=== PATIENT | female | born 1965 | race Caucasian/White ===

== ENCOUNTER 2018-04-23 14:01 | Day surgery (SDC) | payer OTHER ==
[~2018-04-23 14:01] MED LIST: MIDAZOLAM 2 MG/2 ML SOL ONE
[2018-04-23] MEDS: CYCLOPENTOLATE 1% SOL ONE ×3 (14:14→14:23)
[2018-04-23] MEDS: TROPICAMIDE 1% OPHTH SOL ONE ×3 (14:14→14:24)
[2018-04-23] MEDS: PHENYLEPHRINE HCL 10% OPHTHAL SOL ONE ×3 (14:14→14:23)
[2018-04-23] MEDS ORDERED: MOXIFLOXACIN-HOME SOL OP ONE ×2 (14:15→14:20)
[2018-04-23] MEDS ORDERED: KETOROLAC/HOME 0.5% SOL OP ONE ×3 (14:15→14:24)
[2018-04-23] MEDS: PROPARACAINE HCL 0.5% OPHTHALMIC SOL ONE ×2 (14:24→14:44)
[2018-04-23] MEDS ORDERED: POVIDONE IODINE 5% SOL ONE (14:35)
[2018-04-23] MEDS ORDERED: BSS W/ 0.5 MG P.F. EPI 1 BOTTLE ONE (14:35)
[2018-04-23] MEDS ORDERED: LIDOCAINE HCL 2% MPF 10 ML SOL ONE (14:39)
[2018-04-23] MEDS ORDERED: ACETAZOLAMIDE 250 MG PO ONE (15:03)
[2018-04-23 15:16] VITALS: BP 154/81; PULSE 77; RESP 20; TEMP 97.6; O2SAT 98
[2018-04-23] MEDS ORDERED: LABETALOL HYDROCHLORIDE 5 MG/ML SOL IV ONE (15:24)
== END 2018-04-23 15:50 | disposition home or self-care (01) ==
LOC: SURG 14:01
PROVIDERS: ATTEND Ophthalmology
DX: H25.89 Other age-related cataract (principal); E11.9 Type 2 diabetes mellitus without complications
CPT/HCPCS: J2250; A9270-GY; J3490

== ENCOUNTER 2018-06-04 14:05 | Day surgery (SDC) | payer OTHER ==
[2018-04-23 15:16] VITALS: O2SAT 98
[2018-06-04] MEDS: PHENYLEPHRINE HCL 10% OPHTHAL SOL ONE ×3 (14:24→14:39)
[2018-06-04] MEDS: CYCLOPENTOLATE 1% SOL ONE ×3 (14:24→14:40)
[2018-06-04] MEDS: TROPICAMIDE 1% OPHTH SOL ONE ×3 (14:25→14:41)
[2018-06-04] MEDS ORDERED: KETOROLAC/HOME 0.5% SOL LEFTEYE ONE ×3 (14:25→14:41)
[2018-06-04] MEDS ORDERED: MOXIFLOXACIN-HOME SOL LEFTEYE ONE ×2 (14:26→14:31)
[2018-06-04] MEDS: TETRACAINE HCL 0.5 % 1 DROP SOL ONE ×2 (14:41→15:34)
[2018-06-04] MEDS ORDERED: MIDAZOLAM 2 MG/2 ML SOL ONE (15:07)
[2018-06-04] MEDS ORDERED: LIDOCAINE HCL 2% MPF 10 ML SOL ONE (15:26)
[2018-06-04] MEDS ORDERED: BSS W/ 0.5 MG P.F. EPI 1 BOTTLE ONE (15:26)
[2018-06-04] MEDS ORDERED: POVIDONE IODINE 5% SOL ONE (15:26)
[2018-06-04 16:03] VITALS: BP 140/72; PULSE 76; RESP 18; TEMP 97.4
[2018-06-04] MEDS ORDERED: ACETAZOLAMIDE 500 MG CER PO ONE (16:05)
[2018-06-04] MEDS ORDERED: ACETAZOLAMIDE 250 MG PO ONE ×2 (16:37→16:38)
== END 2018-06-04 16:30 | disposition home or self-care (01) ==
LOC: SURG 14:05
PROVIDERS: ATTEND Ophthalmology
DX: H25.89 Other age-related cataract (principal); R73.03 Prediabetes
CPT/HCPCS: 82962; J2250; A9270-GY